=== PATIENT | female | born 1970 | race Caucasian/White ===

== ENCOUNTER → 2017-02-05 | Outpatient (CLI) | payer BC ==
[~2017-02-05] MED LIST: BECL1AER5 NAE; BENZ100C7 PO; CETI10TA84 PO; CITA20TA9 PO; DIPH25CA65 PO; HYDR5SYP11 PO; METH4PAK PO; VBRT100 PO; VNTHFA/IN INH
== END | disposition home or self-care (01) ==
LOC: C.PAPS 10:05
PROVIDERS: ATTEND Obstetrics & Gynecology
DX: Z01.419 Encounter for gynecological examination (general) (routine) without abnormal findings (principal)

== ENCOUNTER → 2017-02-20 | Outpatient (CLI) | payer BC ==
--- NOTE | 2017-02-20 14:07 | MAMMOGRAPHY REPORT ---
UNILATERAL LEFT DIGITAL DIAGNOSTIC MAMMOGRAM TOMOSYNTHESIS WITH CAD AND TARGETED LEFT ULTRASOUND: CLINICAL HISTORY: The patient reports that her physician felt a possible lump in the left 12:[address] during a routine clinical exam. TECHNIQUE: Breast tomosynthesis in addition to standard 2D mammography was performed. Current study was also evaluated with a Computer Aided Detection (CAD) system. Left CC and MLO 2-D and tomosynth esis images were obtained. COMPARISON: Comparison is made to exams dated: 08/01/2016 mammogram, 07/25/2015 mammogram, 3 mammogram - [facility], 01/24/2011 mammogram, and 08/01/2009 mammogram. BREAST COMPOSITION: The tissue of the left breast is heterogeneously dense, which may obscure small masses. FINDINGS: There has been no significant interval change mammographically compared to prior exams. There is an oval partially circumscribed and partially obscured 7 mm mass seen in the left breast on the cc view middle depth along the posterior nipple line, not clearly evident on the MLO view but t hought to project at approximately 12:00. The mass is best seen on the tomosynthesis images. The m ass is stable compared to the 2015 exam and is likely also stable compared to the 2014 exam. No paxton picious masses, calcifications, or areas of architectural distortion are noted in the left breast ma mmographically. Targeted ultrasound was performed of the area of the palpable lump pointed out by the patient, in th e left breast periareolar region approximately 2-3 cm from the nipple. At the site of the palpable lump there is an oval circumscribed anechoic mass with a thin internal septation, measuring 6 x 5 x 6 mm. This corresponds with the stable mammographic mass and is consistent with a benign cyst. No suspicious solid masses were evident. IMPRESSION: ACR BI-RADS CATEGORY 2: BENIGN, TARGETED ULTRASOUND ACR BI-RADS CATEGORY 2: BENIGN Benign 6 mm cyst seen within the left breast at 12:00 at the site of the palpable lump pointed out b y the patient. There is no mammographic or targeted sonographic evidence of malignancy. Recommend clinical follow-up for the palpable left breast lump, and recommend routine bilateral screening mamm ograms which are due July 2017. The patient has been verbally notified of the results. Approximately 10% of breast cancers are not detected with mammography. A negative mammographic repor t should not delay biopsy if a clinically suggestive mass is present. Akila Nobles M.D. ah/:02/20/2017 08:35:32 Dial Screw Assembler: Dalila MCNULTY(Vinay)(Aliyah), [facility] letter sent: Normal 1/2 BI-RADS Code: ACR BI-RADS Category 2: Benign Ultrasound BI-RADS: ACR BI-RADS Category 2: Benign
== END | disposition home or self-care (01) ==
LOC: C.MAMM 08:08
PROVIDERS: ATTEND Obstetrics & Gynecology
DX: N63 Unspecified lump in breast (principal)

== ENCOUNTER → 2017-04-09 | Outpatient (CLI) | payer BC ==
[~2017-04-09] MED LIST changes: -BENZ100C7 PO; -HYDR5SYP11 PO; -METH4PAK PO; -VBRT100 PO; -VNTHFA/IN INH
[2017-04-09 09:43] LABS: PREG INTERNAL NEGATIVE QC NEG CLEAR BACKGROUND; PREG INTERNAL POSITIVE QC POS CONTROL LINE
== END | disposition home or self-care (01) ==
LOC: C.LAB 07:47
PROVIDERS: ATTEND Physician Assistant
DX: Z30.9 Encounter for contraceptive management, unspecified (principal)

== ENCOUNTER → 2017-05-12 | Day surgery (SDC) | payer BC ==
[2017-04-15 14:37] VITALS: Ht 162.6 cm; Wt 70.5 kg
--- NOTE | 2017-05-06 18:14 | HISTORY & PHYSICAL EXAMINATION ---
DATE OF ADMISSION: 05/12/2017 CHIEF COMPLAINT: Malpositioned IUD. HISTORY OF PRESENT ILLNESS: The patient is a 46-year-old white female, 0, who has had a Mirena IUD in place since 2009. An attempt was made to remove the IUD in the office and this could not be accomplished. Ultrasound shows the arms of the IUD appeared to be imbedded in the uterine wall. The patient had a Pap smear done last January of 2017 and this was negative. Ultrasound also showed evidence of a small subserosal fibroid. The patient would like a new Mirena IUD placed after the present one is removed. Patient does have history of prior hysteroscopic myomectomy. PAST MEDICAL HISTORY: ALLERGIES: ERYTHROMYCIN ANTIBIOTICS. MEDICATIONS: The patient takes citalopram 20 mg daily. She uses 2 Q nasl children's 40-mcg aerosol solution 1 puff each nostril at night. In addition, she also takes Benadryl Allergy 25 mg as needed. PAST SURGICAL HISTORY: She has had tooth extractions in the past. She has also had a myoma removed hysteroscopically. In addition, she has had ablation of cardiac electrical conduction pathway because of arrhythmia. ILLNESSES: She has a history of depression. A history of supraventricular tachycardia. This is in addition to her history of fibroids. FAMILY HISTORY: Her mother has hypertension and had an ovarian cyst. Her sister had club foot and endometriosis. Her maternal grandmother had breast cancer. Her maternal aunt had diabetes. A maternal uncle had diabetes. SOCIAL HISTORY: The patient is single. She denies smoking cigarettes. She drinks alcohol from 0-2 drinks per week. PHYSICAL EXAMINATION: VITAL SIGNS: Height 5 feet 4 inches, weight 158 pounds, and blood pressure 112/70. HEENT: Grossly within normal limits. NECK: Supple without masses. CHEST: Her lungs are clear without wheezing. HEART: Regular rate and rhythm. No murmurs, gallops or rubs. BREASTS: There was a small left breast mass on exam, 02/05/2017. ABDOMEN: Soft and nontender with no masses. PELVIC: External genitalia normal. Vagina pink and stimulated. Cervix pink and closed with no lesions visible. IUD string is seen. EXT: No cyanosis, clubbing or edema. IMPRESSION: Embedded IUD. The patient desires removal of present IUD and insertion of new IUD. PLAN: The patient is for hysteroscopy, dilation of the cervix and curettage with possible removal of polyp/lesion and removal of IUD with possible insertion of new IUD. The patient desires new Mirena IUD. The patient is aware of the risks of infection, bleeding, perforation of the uterus, which may require additional surgery or treatment as well as the risk of failure of the procedure and retained pieces of IUD, which also could require additional surgery or treatment. She is aware of the option of doing nothing. The patient wishes to proceed with the above surgery. MTDD
[~2017-05-12] VITALS: Ht 162.6 cm; Wt 70.5 kg
[~2017-05-12] MED LIST changes: +ATROPINE SULFATE 0.1 MG/ML 5ML SYR IV PRN; -CETI10TA84 PO; +DEXAMETHASONE SOD INJ 4 MG/ML VIAL ONE; +EpHEDrine SULFATE INJ 50 MG/ML AMP IV PRN; +FENTANYL CITRATE INJ 50 MCG/1 ML 2 ML VIAL IV PRN; +FENTANYL CITRATE INJ 50 MCG/1 ML 2 ML VIAL ONE; +HYDROmorphone INJ 1 MG/ML SYR IV PRN; +IBUPROFEN 200 MG TAB ONE; +IBUPROFEN 600 MG TAB PO PRN; +KETOROLAC TROMETHAMINE 30 MG/ML VIAL ONE; +LACTATED RINGER'S 1000ML 1,000 ML IV SCH; +LIDOCAINE HCL 2% 2 ML VIAL (20MG/ML) ONE; +MIDAZOLAM HCL 1 MG/ML 2ML VIAL ONE; +ONDANSETRON INJ 2 MG/ML 2 ML VIAL IV PRN; +ONDANSETRON INJ 2 MG/ML 2 ML VIAL ONE; +PROMETHAZINE HCL INJ 12.5 MG in SODIUM CHLORIDE 0.9% 50ML 50 ML IV PRN; +PROPOFOL IV EMULSION 10 MG/ML 20 ML VIAL IV ONE; +SODIUM CHLORIDE 0.9% 1000ML 1,000 ML IV SCH
--- NOTE | 2017-05-12 08:30 | History & Physical Bridge - SC ---
H&P Re-Evaluation Bridge Note: I have examined the patient, reviewed the History & Physical and in the interval since the performance of the History & Physical I have noted the following changes of clinical significance: No changes noted
--- NOTE | 2017-05-12 09:16 | [facility] Post Operative Brief Note ---
Immediate Operative Summary Operative Date May 12, 2017. Pre-Operative Diagnosis Embedded Intrauterine Device (IUD) Post-Operative Diagnosis Same Procedure(s) Performed Dilatation And Curettage, Hysteroscopy, Intrauterine Device Removal Surgeon Dr. Mello Sommelier Surgeon(s) None Estimated Blood Loss 25 mL Findings See dictated note. Specimens A. Endometrial Curettings Complication(s) None Disposition Recovery Room / PACU
--- NOTE | 2017-05-12 09:27 | Discharge Instructions-SurgCtr ---
Discharge Instructions Date of Service May 12, 2017. Visit Reason for Visit: Unsuccessful Iud Removal Discharge Discharge Diagnosis / Problem: S/P Hysteroscopy, D&C, removal of IUD Discharge Goals Goal(s): Therapeutic intervention Activity Recommendations Activity Limitations: per Instructions/Follow-up section Anesthesia . Post Anesthesia Instructions: If you have had General Anesthesia or IV Sedation: * Do not drive today. * Resume driving when surgeon permits. * Do not make important decisions or sign legal documents today. * Call surgeon for: 1. Temperature elevations greater than 101 degrees F. 2. Uncontrollable pain. 3. Excessive bleeding. 4. Persistent nausea and vomiting. 5. Medication intolerance (nausea, vomiting or rash). * For nausea and vomiting use only clear liquids such as: tea, soda, bouillon until nausea subsides, then gradually increase diet as tolerated. * If you have any concerns or questions, call your surgeon's office. If physician is unavailable and it is an emergency, call 911 or go to the nearest emergency room. . Instructions / Follow-Up Instructions / Follow-Up ACTIVITY RECOMMENDATIONS: * Avoid tampons, douching, hot tubs, pools, and intercourse until bleeding has stopped. * May shower as usual. * No strenuous activity for 24-48 hours. After 24-48 hours, you may do anything you feel like doing (driving and sports are okay). SPECIAL CARE INSTRUCTIONS: Special Diet: * Mild nausea may occur in the immediate post-operative period. * Take clear liquids such as tea, cola or bouillon until all nausea has subsided; you may then resume your normal diet. Special Care: * Light bleeding and vaginal spotting can last from a few days to 3-4 weeks. Call your doctor if bleeding becomes heavier than the heaviest part of your period. Call if you develop foul smelling discharge or severe cramping. * Check your temperature twice a day for one week. If it goes above 100.4 degrees Fahrenheit (38.0 Celsius), notify your doctor. * Call your doctor's office for an appointment 3-4 weeks after your surgery. [phone] Mello FOLLOW-UP VISIT: Call your doctor's office for an appointment for 3-4 weeks after your surgery. Diet Recommendations Home Diet: resume previous diet Procedures Procedures Performed: Dilatation And Curettage, Hysteroscopy, Intrauterine Device Removal Pending Studies Studies pending at discharge: yes List of pending studies: Pathology report on endometrial tissue removed. Please call office and talk to surgical nurse in one week. [phone] Medical Emergencies . Who to Call and When: Medical Emergencies: If at any time you feel your situation is an emergency, please call 911 immediately. . Non-Emergent Contact Non-Emergency issues call your: Health Assistant Call Non-Emergent contact if: temperature is above 100.5, your pain is worsening . . "Provider Documentation" section prepared by Jasmyn Mello. .
--- NOTE | 2017-05-12 10:09 | OPERATIVE REPORT ---
DATE OF OPERATION: 05/12/2017 PREOPERATIVE DIAGNOSIS: Embedded intrauterine device. POSTOPERATIVE DIAGNOSIS: Same. PROCEDURE PERFORMED: Hysteroscopy, removal of IUD, and dilation and curettage. SURGEON: Jasmyn Mello MD ANESTHESIA: General. JEWELRY INTERNSHIP: Dr. Ruth. DESCRIPTION OF PROCEDURE: The patient was taken to the operating room, where general anesthesia was administered. After an adequate level was obtained, she was placed in dorsal lithotomy position. Vulva, vagina, and cervix were prepped with Betadine solution. The patient was draped. Bladder was drained with a straight catheter. Weighted speculum was placed in the posterior fornix of the vagina. The IUD strings were identified. These were grasped with a curved hemostat. An attempt made was to gently remove the IUD, but this was not possible. The cervix was then dilated enough to admit the small operating hysteroscope to be introduced. Hysteroscope was introduced and photographs taken. The IUD was indeed embedded and there appeared to be uterine synechiae holding it in place. It should be noted that the IUD had been placed immediately after hysteroscopic removal of fibroids. A grasper was used through the operating channel and it was possible to disrupt the synechiae by taking bites of the tissue with a grasper and removing the tissue from around the IUD. The body of the IUD was held in place by a thick band of tissue. After this was removed, the lower pole was freed up. Finally, the right arm of the IUD was also freed up. Finally, tissue holding the lower tip of the IUD including the strings was also freed up. It was then possible to easily remove the IUD in the usual fashion. As there was a lot of loose tissue in the endometrial cavity at that point, a gentle curettage was carried out with a smooth and then a serrated curette. This was sent to pathology as curettings. Given the disruption of the uterine rogers and the endometrial lining in the process of removal of the IUD, a new IUD was not placed. We will wait for 2-3 months before placing the new IUD to allow the uterine rogers to heal. I attest to the content of the Intraoperative Record and any orders documented therein. Any exceptions are noted below. MTDD
[2017-05-12 10:21] VITALS: TEMP 36.2
--- NOTE | 2017-05-12 10:31 | Anesthesia Progress Nt - [facility] ---
Anesthesia Post Op Note Date & Time May 12, 2017 at 10:30 Vital Signs Pain Intensity: 2 Vital Signs Past 12 Hours Date Time Temp Pulse Resp B/P (MAP) Pulse Ox O2 Delivery O2 Flow Rate FiO2 05/12/17 10:21 36.2 53 16 117/80 (92) 100 Room Air 05/12/17 10:11 36.4 119/66 05/12/17 10:10 62 19 05/12/17 10:10 68 19 100 05/12/17 10:06 122/82 05/12/17 10:05 58 8 05/12/17 10:05 57 8 100 05/12/17 10:01 119/71 05/12/17 10:00 71 10 100 05/12/17 10:00 67 10 05/12/17 09:56 120/72 05/12/17 09:55 58 7 99 05/12/17 09:55 58 7 05/12/17 09:51 110/68 05/12/17 09:50 53 5 99 05/12/17 09:50 53 5 05/12/17 09:46 109/65 05/12/17 09:45 58 5 99 05/12/17 09:45 58 5 05/12/17 09:41 102/66 05/12/17 09:40 58 7 05/12/17 09:40 58 7 99 05/12/17 09:36 107/68 05/12/17 09:35 68 7 99 05/12/17 09:35 68 7 05/12/17 09:31 110/69 05/12/17 09:30 56 12 99 05/12/17 09:30 57 12 05/12/17 09:26 112/74 05/12/17 09:25 36.2 64 16 112/74 99 Mask 6 05/12/17 09:25 66 99 05/12/17 09:25 66 05/12/17 07:09 36.7 68 18 111/75 (87) 96 Room Air Notes Mental Status: alert / awake / arousable, participated in evaluation Pt Amnestic to Procedure: Yes Nausea / Vomiting: adequately controlled Pain: adequately controlled Airway Patency, RR, SpO2: stable & adequate BP & HR: stable & adequate Hydration State: stable & adequate Anesthetic Complications: no major complications apparent Doing well. No c/o nausea. VSS
[2017-05-12 10:45] VITALS: BP 107/72; PULSE 56; O2SAT 100
== END | disposition home or self-care (01) ==
LOC: X.SURG 07:01
PROVIDERS: ATTEND Obstetrics & Gynecology
DX: T83.39XA Other mechanical complication of intrauterine contraceptive device, initial encounter (principal); Y84.8 Other medical procedures as the cause of abnormal reaction of the patient, or of later complication, without mention of misadventure at the time of the procedure; F32.9 Major depressive disorder, single episode, unspecified; Z84.2 Family history of other diseases of the genitourinary system; Z86.79 Personal history of other diseases of the circulatory system

== ENCOUNTER → 2017-08-04 | Outpatient (CLI) | payer BC ==
[~2017-08-04] MED LIST changes: -ATROPINE SULFATE 0.1 MG/ML 5ML SYR IV PRN; -DEXAMETHASONE SOD INJ 4 MG/ML VIAL ONE; -EpHEDrine SULFATE INJ 50 MG/ML AMP IV PRN; -FENTANYL CITRATE INJ 50 MCG/1 ML 2 ML VIAL IV PRN; -FENTANYL CITRATE INJ 50 MCG/1 ML 2 ML VIAL ONE; -HYDROmorphone INJ 1 MG/ML SYR IV PRN; -IBUPROFEN 200 MG TAB ONE; -IBUPROFEN 600 MG TAB PO PRN; -KETOROLAC TROMETHAMINE 30 MG/ML VIAL ONE; -LACTATED RINGER'S 1000ML 1,000 ML IV SCH; -LIDOCAINE HCL 2% 2 ML VIAL (20MG/ML) ONE; -MIDAZOLAM HCL 1 MG/ML 2ML VIAL ONE; -ONDANSETRON INJ 2 MG/ML 2 ML VIAL IV PRN; -ONDANSETRON INJ 2 MG/ML 2 ML VIAL ONE; -PROMETHAZINE HCL INJ 12.5 MG in SODIUM CHLORIDE 0.9% 50ML 50 ML IV PRN; -PROPOFOL IV EMULSION 10 MG/ML 20 ML VIAL IV ONE; -SODIUM CHLORIDE 0.9% 1000ML 1,000 ML IV SCH
--- NOTE | 2017-08-05 07:48 | MAMMOGRAPHY REPORT ---
BILATERAL DIGITAL SCREENING MAMMOGRAM TOMOSYNTHESIS WITH CAD: 08/04/2017 CLINICAL HISTORY: Routine screening. Patient has no complaints. TECHNIQUE: Breast tomosynthesis in addition to standard 2D mammography was performed. Current study was also evaluated with a Computer Aided Detection (CAD) system. COMPARISON: Comparison is made to exams dated: 02/20/2017 ultrasound, 02/20/2017 mammogram, 08/01/2016 mammogram, 07/25/2015 mammogram, 09/08/2013 mammogram - [facility], and 01/24/2011 m ammogram. BREAST COMPOSITION: The tissue of both breasts is heterogeneously dense, which may obscure small mas ses. FINDINGS: The parenchymal pattern is unchanged. No developing mass, architectural distortion or clus ter of suspicious microcalcifications is seen in either breast. IMPRESSION: ACR BI-RADS CATEGORY 2: BENIGN There is no mammographic evidence of malignancy. A 1 year screening mammogram is recommended. The pa tient will receive written notification of the results. Approximately 10% of breast cancers are not detected with mammography. A negative mammographic report should not delay biopsy if a clinically suggestive mass is present. Smita Ybarra M.D. ay/:08/04/2017 20:34:17 Brick Tosser: Opal MCNULTY(Vinay)(Aliyah), [facility] letter sent: Normal 1/2 BI-RADS Code: ACR BI-RADS Category 2: Benign
== END | disposition home or self-care (01) ==
LOC: C.MAMM 16:20
PROVIDERS: ATTEND Internal Medicine
DX: Z12.31 Encounter for screening mammogram for malignant neoplasm of breast (principal)

== ENCOUNTER → 2017-08-27 | Outpatient (CLI) | payer BC ==
[~2017-08-27] MED LIST changes: +BENZ100C7 PO; +HYDR5SYP11 PO; +METH4PAK PO; +VBRT100 PO; +VNTHFA/IN INH
--- NOTE | 2017-08-27 09:46 | DIAGNOSTIC IMAGING REPORT ---
CHEST 2 VIEWS ROUTINE CLINICAL HISTORY: 47 years-old Female presenting with R68.89 Flu-like [id number]. TECHNIQUE: PA and lateral views of the chest were obtained. COMPARISON: 01/04/2013. FINDINGS: Cardiomediastinal silhouette normal. Dense opacity in the anterior segment of the right upper lobe. No pleural effusion or pneumothorax. Osseous structures normal. Upper abdomen normal. IMPRESSION: 1. Right upper lobe pneumonia. Electronically signed by: Scooby Paulson M.D. 08/27/2017 9:44 AM Dictated Date/Time: 08/27/2017 9:44 AM
== END | disposition home or self-care (01) ==
LOC: C.RAD1850 09:21
PROVIDERS: ATTEND Internal Medicine
DX: R68.89 Other general symptoms and signs (principal); J18.9 Pneumonia, unspecified organism

== ENCOUNTER 2017-08-31 10:54 | Emergency (ER) | payer BC ==
[~2017-08-31] VITALS: Ht 162.6 cm; Wt 74.0 kg
[~2017-08-31 10:54] MED LIST changes: -BENZ100C7 PO; -HYDR5SYP11 PO; -METH4PAK PO; -VBRT100 PO; -VNTHFA/IN INH
[2017-08-31 11:01] VITALS: Ht 162.6 cm; Wt 74.0 kg
[2017-08-31] MEDS ORDERED: BENZ100C7 PO (11:29)
[2017-08-31] MEDS ORDERED: VBRT100 PO (11:29)
[2017-08-31] MEDS ORDERED: ALBUTEROL HFA 8 GM INHALER INH ONE (11:30)
[2017-08-31] MEDS ORDERED: VNTHFA/IN INH (11:31)
[2017-08-31] MEDS ORDERED: HYDR5SYP11 PO (11:31)
[2017-08-31] MEDS ORDERED: METH4PAK PO (11:31)
--- NOTE | 2017-08-31 11:32 | EMERGENCY ROOM VISIT NOTE ---
ED Visit Note First contact with patient: 11:04 CHIEF COMPLAINT: Cough x 10 days, diagnosed with pneumonia last week. HPI: Patient is an otherwise healthy 47-year-old white female who presents the emergency department for evaluation of persistent cough after being diagnosed with pneumonia last week. Patient reports that she developed cold and flulike symptoms about 10 days ago. She reports a dry, nonproductive cough, fever up to 102F orally and body and muscle aches. She treated her symptoms conservatively until last Friday, 08/27 when she was seen by her primary care provider. She had an influenza swab was performed which was negative, and a chest x-ray which noted a right upper lobe pneumonia. She is placed on doxycycline which she has been taking twice a day since last Friday. She was also given Tessalon for cough which has not been helping. She has also used waqa-[id number]-evhnrrr medications into including Tylenol Cold and flu. She states that the fever has been trending down, temperature yesterday was 99.8F orally. She states that her chest feels "less rattley," but she is still bothered by a fairly persistent cough. She notes the cough is productive in the morning, but becomes dry, harsh and "spasmodic" as the day goes on. She denies any difficulty breathing, shortness of breath or chest pain. She does not smoke. She does not have any prior history of asthma. REVIEW OF SYSTEMS: Review of systems as per HPI. All other systems reviewed were negative. 10 systems reviewed. PMH: Electronic medical records are reviewed and summarized as above/below. See Problem List. SOCIAL HISTORY: Patient lives at home with family. Employed. PHYSICAL EXAM: Vital Signs: Reviewed Nurse's notes. MENTAL STATUS: Patient is a pleasant, well-appearing 47-year-old white female who is awake and alert and in no acute distress. She is afebrile. Oxygen saturation 96% on room air. No conversational dyspnea. HEAD: Atraumatic, without temporal or scalp tenderness. EYES: PERRL, EOMI, no discharge or injection. EARS: Tympanic membranes intact, not inflamed, have normal contour. External canals clear. NOSE: Nares patent, turbinates moist without rhinorrhea. MOUTH: Mucous membranes moist, no lesions, tongue and gums appear normal. THROAT: No pharyngeal injection, exudates, or tonsillar hypertrophy. Airway is patent. NECK: Supple, nontender, no lymphadenopathy. HEART: Regular rate and rhythm without murmurs, ectopy, gallops, or rubs. LUNGS: Clear to auscultation and breath sounds equal, no wheezes, rales, or rhonchi. SKIN: Normal. NEUROLOGICAL: Sensory and motor functions grossly intact. Normal gait. EMERGENCY DEPARTMENT COURSE: The patient was seen and examined as above. Her chest x-ray from last week was reviewed. Further supportive care was discussed with the patient. She appears to be responding well to the doxycycline, certainly residual cough given the diagnosis of pneumonia is not unreasonable however. She was given an albuterol inhaler with a spacer, and instructed on its use. She was given prednisone 60 mg orally. She was also given a prescription for Hycodan that she can use for cough. She was advised to follow- up with her primary care provider next week if her symptoms are not improving. Differential diagnoses entertained included bronchitis, pneumonia, bronchospasm , allergic rhinitis, among others. Medication reconciliation: I attest that I have personally reviewed the patient' s current medication list. Blood pressure screening : Patient was found to have normal blood pressure on screening and does not require follow-up. Problem List Medical Problems: (1) Anxiety State Nos Status: Chronic (2) Depressive Disorder Nec Status: Chronic (3) Environmental and seasonal allergies Status: Chronic (4) Lower back injury Status: Resolved Current/Historical Medications Scheduled Albuterol Hfa (Ventolin Hfa), 2-4 PUFFS INH Q6H Benzonatate (Benzonatate), 100 MG PO UD Citalopram Hydrobromide (Celexa), 20 MG PO QPM Doxycycline Hyclate (Doxycycline Hyclate), 100 MG PO BID Methylprednisolone (Medrol Dosepak), 0 PO DAILY Scheduled PRN Beclomethasone Dipropionate (N (Qnasl), 2 SPRY EULA DAILY PRN for PRN Diphenhydramine Hcl (Benadryl Allergy), 1 CAP PO DIRECTED PRN for ALLERGY RELIEF Hydrocodone W/ Homatropine (Hycodan 5/1.5MG 5 Ml), 10 ML PO Q4H PRN for Cough Allergies Coded Allergies: Erythromycin (Verified Allergy, Mild, RASH, 08/31/17) Vital Signs Date Time Temp Pulse Resp B/P (MAP) Pulse Ox O2 Delivery O2 Flow Rate FiO2 08/31/17 11:43 36.7 74 16 98/65 98 08/31/17 11:17 89 08/31/17 11:12 79 16 125/71 98 Room Air 08/31/17 11:01 36.9 81 20 123/78 96 Room Air Medications Administered Medications (Trade) Dose Ordered Sig/[place] Route Start Time Stop Time Status Last Admin Dose Admin Albuterol (Ventolin Hfa Inhaler) 2 puffs NOW ONCE INH 08/31/17 11:30 08/31/17 11:31 DC 08/31/17 11:42 2 PUFFS Prednisone (PredniSONE TAB) 60 mg NOW STAT PO 08/31/17 11:20 08/31/17 11:22 DC 08/31/17 11:42 60 MG Departure Information Impression Primary Impression: Pneumonia Prescriptions Albuterol Hfa (VENTOLIN HFA) 200 Puffs/13364 Mcg Aers 2-4 PUFFS INH Q6H, #1 INHALER Prov: Vivian Castañeda PA 08/31/17 Methylprednisolone (MEDROL DOSEPAK) 4 Mg Carlos 0 PO DAILY, #1 PKT Once daily as directed. Prov: Vivian Castañeda PA 08/31/17 Hydrocodone W/ Homatropine (HYCODAN 5/1.5MG 5 ML) 1 Syp Syp 10 ML PO Q4H Y for Cough, #200 ML For Initial Treatment Prov: Vivian Castañeda PA 08/31/17 Referrals RV. Pedersen MD (PCP) Patient Instructions My [facility] Additional Instructions Finished doxycycline as prescribed. Albuterol Inhaler: Take 2 puffs every 4 hours (while awake) for the next 5-7 days, then as needed for cough, wheezing or shortness of breath. Medrol Dosepak: Once daily until the prescription is finished. It is best to take this earlier in the day as some patients note occasional difficulty falling asleep when taken in the late evening. Ibuprofen(Motrin, Advil) may be used for fever or pain. Use 600mg every six hours as needed. Take with food. Avoid using more than 2400mg in a 24 hour period. Do not use 2400mg per day for more than three consecutive days without physician direction. Prolonged inappropriate use can lead to stomach upset or ulcers. This is available over the counter and typically comes in 200mg tablets. (AND/OR) Acetaminophen(Tylenol) may be used for fever or pain. Use 1000mg every eight hours as needed. Avoid using more than 3000mg in a 24 hour period. This is available over the counter. Hycodan cough syrup: use 5-10 mL's every six hours only as needed for severe cough. It is best for use at night since it will cause sedation. This is a narcotic medication. Avoid alcohol, operating machinery or dangerous equipment , working on ladders or roofs, DRIVING, important decision making, or situations where being under the influence may be dangerous. It is recommended to use an luod-ozz-caufdup stool softener such as Colace, 100mg twice daily while taking this medication to avoid constipation. Read all the package inserts or medication information paperwork provided. If you have any questions or concerns call your primary provider, pharmacist or the ER for assistance. Controlling your fever with Tylenol and Ibuprofen as above will make you feel better. Rest and drink plenty of fluids. Avoid strenuous activity until your symptoms resolve and your breathing returns to normal. Continue current medications. Return to the ER for chest pain, difficulty breathing, persistent fevers, vomiting, worsening of your condition, or as needed. Follow up with your primary care physician next week if your symptoms are not improving.
[2017-08-31 11:43] VITALS: BP 98/65; PULSE 74; TEMP 36.7; O2SAT 98
== END 2017-08-31 11:45 | disposition home or self-care (01) ==
LOC: C.EDB 10:55 → C.EDC 11:45
DX: J18.9 Pneumonia, unspecified organism (principal); F32.9 Major depressive disorder, single episode, unspecified

== ENCOUNTER → 2017-09-08 | Outpatient (CLI) | payer BC ==
[~2017-09-08] MED LIST changes: +BENZ100C7 PO; +HYDR5SYP11 PO; +METH4PAK PO; +VBRT100 PO; +VNTHFA/IN INH
--- NOTE | 2017-09-08 11:58 | DIAGNOSTIC IMAGING REPORT ---
CHEST 2 VIEWS ROUTINE CLINICAL HISTORY: 47 years-old Female presenting with J18.9 Community acquired pneumonia. TECHNIQUE: PA and lateral views of the chest were obtained. COMPARISON: 08/27/2017. FINDINGS: Cardiomediastinal silhouette normal. Interval resolution of the right upper lobe opacity. No new focal infiltrate. No pleural effusion or pneumothorax. Osseous structures normal. Upper abdomen normal. IMPRESSION: 1. Complete radiographic resolution of right upper lobe pneumonia. Electronically signed by: Scooby Paulson M.D. 09/08/2017 11:57 AM Dictated Date/Time: 09/08/2017 11:56 AM
== END | disposition home or self-care (01) ==
LOC: C.RAD1850 11:40
PROVIDERS: ATTEND Physician Assistant
DX: J18.9 Pneumonia, unspecified organism (principal)

== ENCOUNTER → 2017-09-13 | Outpatient (CLI) | payer BC ==
[~2017-09-13] MED LIST changes: -HYDR5SYP11 PO; -METH4PAK PO
--- NOTE | 2017-09-13 12:40 | DIAGNOSTIC IMAGING REPORT ---
CHEST 2 VIEWS ROUTINE HISTORY: Follow-up PNEUMONIA COMPARISON: Chest 09/08/2017. FINDINGS: The lungs are clear. Cardiac silhouette is normal in size. No pleural effusions. No pneumothorax. IMPRESSION: No acute process. Electronically signed by: Celestino Mejia M.D. 09/13/2017 12:39 PM Dictated Date/Time: 09/13/2017 12:37 PM
== END | disposition home or self-care (01) ==
LOC: C.RADBC 12:17
PROVIDERS: ATTEND Internal Medicine
DX: Z87.01 Personal history of pneumonia (recurrent) (principal)

== ENCOUNTER → 2017-12-16 | Outpatient (CLI) | payer BC ==
[~2017-12-16] VITALS: Ht 162.6 cm; Wt 75.6 kg
[2017-12-16 15:53] VITALS: BP 120/71; PULSE 76; Ht 162.6 cm; Wt 75.6 kg
== END | disposition home or self-care (01) ==
LOC: C.NEUR 14:10
PROVIDERS: ATTEND Physician Assistant Medical
DX: R06.83 Snoring (principal); G47.8 Other sleep disorders; R53.83 Other fatigue; J30.9 Allergic rhinitis, unspecified

== ENCOUNTER → 2018-01-06 | Outpatient (CLI) | payer BC ==
--- NOTE | 2018-01-07 07:36 | PAP/PSG TECHNICIAN REPORT ---
[facility] Store Administrative Assistant Polysomnogram Report Study name: None Report date: 01/07/2018 Study date: 01/06/2018 Referring Physician: RV. PÉREZ MD Name: ANIRUDH GOETZ Interpreting Physician: Geoff Greenberg M.D. Date of : 1970 Store Administrative Assistant: Stephy Goodman, PSGT. Sex: Female Age: 47 StudyType: PSG Weight: 166 lbs Height: 47 years, Height 5' 4" Neck Circum:13.5 BMI: 28.49 Medications: Breo, Citalopram 20 mg, Melatonin 5 mg, Mucinex 600 mg, Pro-Air. Patient History 47-year-old female, presents to the sleep lab for a diagnostic sleep study. Patient complains of snoring, fatigue, and a 17 lb. weight gain in the last 1-2 years.ESS= 4, Neck = 13.5 inches. Parameters Monitored NPSG: E1-M2, E2-M1, Fp1-M2, Fp2-M1, F3-M2, F4-M2, F4-M1, C3-M2, C4-M2, C4-M1, O1-M2, O2-M2, O2-M1, T3-M2, T4-M1, P3-M2, P4-M1, CHIN1, CHIN2, HR, EKG, Legs, PFLOW, SNOR, FLOW, CFLOW, Tidal Volume, THOR, ABDO, SpO2, PLTH, CPRESS, ETCO2 Wave, ETCO2, pH Sleep Architecture Sleep Stages Time at Lights Off 9:59:23 PM STAGES Time (min.) TST (%) Time at Lights On 5:12:23 AM Wake 87.0 -- Total Recording Time (TRT) 434.00 min. N1 18.0 5 Total Sleep Period (TSP) 382.0 min. N2 236.0 68 Total Sleep Time (TST) 346.0min. N3 37.5 11 Awake Time 87.0 min. REM 54.5 16 Wake after Sleep Onset 36.0 min. Sleep Efficiency (SE) 80 % Sleep Onset Latency (MEGA) 51.0 min. Number of Stage 1 Shifts None Awakenings 8 Stage Changes 41 Number of REM periods 4 REM 54.5 16 REM Latency 185.5 min. NREM 291.5 84 Body Position Analysis Supine Right Left Side Prone Vertical Total Sleep Time (min.) 0.0 0.0 74.5 74.50 301.8 16.4 Total Sleep Time (%) 0% 0% 22% 22 78% N/A% Total Sleep Time REM (min.) 0.0 0.0 0.0 None 54.5 0.0 Total Sleep Time NREM (min.) 0.0 0.0 74.5 None 217.0 0.0 Intermittent Wake (min.) 0.0 0.0 40.3 None 30.3 16.4 Total Sleep Period (%) 0% None None None None None Arousals Myoclonus (PLM) * Events Count Index Events Count Index Spontaneous 30 5 Events Awake (PLMW) 1 0.7 Respiratory 0 0.0 Events Asleep w/ Arousal (PLMA) 21 3.6 PLM 21 4 Events Asleep w/o Arousal (PLMS) 88 15.3 Snoring 21 4 Total Asleep 109 18.9 Total 72 12 Total 110 15 Respiratory Analysis * CA OA MA CH H RERA Total Count 0 1 0 0 1 0 2 Index 0.0 0.2 0.0 0 0.2 0 0.3 Mean Duration 0.0 14.9 0.0 0.00 26.8 0.0 20.8 Longest Duration 0.0 14.9 0.0 0.00 0.0 0.0 26.8 Respiratory Event Summary Total Supine ~Supine Right Left Prone REM NREM Apneas Count 1 N/A 1 N/A 0 1 0 1 Index 0.2 N/A 0 N/A 0.0 0 0 0 Hypopneas (4% Desat) Count 1 N/A 1 N/A 0 1 1 0 Index 0.2 N/A 0 N/A 0.0 0.2 1.1 0.0 Apneas & All Hypopneas Count 2 N/A 2 N/A 0 2 1 1 Index 0.3 N/A 0 N/A 0 0 1.1 0.2 Respiratory Events (Hedis Review Nurse+All Hyp+RERA) Count 2 N/A 2 N/A 0 2 1 1 Index 0.3 N/A 0 N/A 0.0 0.4 1.1 0.2 Respiratory Related Arousal Count 0 N/A 0 N/A 0 0 0 0 Index 0.0 N/A 0 N/A 0 0 0 0 Snoring Analysis Supine Right Left Prone REM NREM Total Snore duration 53.0 min Snores count N/A N/A 727 1,428 169 1,986 2,155 Snore mean duration 1.5 Sec Snores index N/A N/A 586 316 186.1 408.8 373.7 TST with snoring (%) 15.3% Desaturation Event Summary: Minimum %SpO2 Event Count Mean/Min/Max Duration(sec.) Desaturation Index % Time In Bed > 90 2 16.8 / 12.5 / 21.0 0.3 99.9 86 - 90 0 N/A 0.0 0.0 81 - 85 0 N/A 0.0 0.0 76 - 80 0 N/A 0.0 0.0 71 - 75 0 N/A 0.0 0.0 66 - 70 0 N/A 0.0 0.0 61 - 65 0 N/A 0.0 0.0 56 - 60 0 N/A 0.0 0.0 51 - 55 0 N/A 0.0 0.0 < 50 0 N/A 0.0 0.0 Total REM NREM Awake <50% 0.0 min. 0.0 min. 0.0 min. 0.0 min. 51 - 60% 0.0 min. 0.0 min. 0.0 min. 0.0 min. 61 - 70% 0.1 min. 0.0 min. 0.0 min. 0.1 min. 71 - 80% 0.0 min. 0.0 min. 0.0 min. 0.0 min. 81 - 90% 0.2 min. 0.0 min. 0.0 min. 0.2 min. 91 - 100% 432.1 min. 54.5 min. 291.4 min. 86.1 min. Average 94 94 94 95 Minimum SpO2 68 91 91 68 Desaturation Event Index 0.3 1.1 0.2 0.0 # Desat. Events below 89% N/A N/A N/A N/A Time(%) with Saturation below 89% 0.0 0.0 0.0 0.0 Time(min.) with Saturation below 89% 0.1 0.0 0.0 0.1 Time (mins) REM (mins) NREM (mins) % of TST SpO2 Below 90% N/A N/A NN/A 0.0 SpO2 Below 88% 0 0 0 0 Heart Rate Analysis Min (bpm) Max (bpm) Average (bpm) Awake 50 127 59 NREM 50 77 55 REM 53 81 61 Overall 50 81 56 Supplemental O2 Values Minimum O2 level: None Value Start Time End Time Store Administrative Assistant Comments PSG Study MS. Goetz slept in the right, and prone positions. No cardiac arrhythmia or PLMs noted. No bruxism noted. Snoring was noted and scored as a 3 on a scale of 0 through 5. (0=no snoring, 5=snoring loud enough to be heard through a closed door or down the padilla way) awoke to use the restroom zero times during the night. Ms. Goetz stated, I did not sleep as well as I do when I am in my own bed. The final report will be interpreted and signed by a sleep physician. The completed physician report will then be placed in the patient medical record. Therapy (cm H2O) 0 TIB (min.) 433.0 TST (min.) 346.0 Sleep Onset (min.) 51.0 REM Onset From Sleep (min.) 185.5 Sleep Efficiency % 80 Wakefulness (%) 20 Wakefulness (min.) 87.0 NREM 1 (%) 5 NREM 1 (min.) 18.0 NREM 2 (%) 68 NREM 2 (min.) 236.0 NREM 3 (%) 11 NREM 3 (min.) 37.5 REM (%) 16 REM (min.) 54.5 # Arousals 72 Arousal Index 12 # Snore 2,155 Snore Index 373.7 AHI 0.3 AHI Supine N/A AHI Non-Supine 0 NREM AHI 0.2 REM AHI 1.1 RDI 0.3 # Obstructive Apnea 1 # Central Apnea 0 # Mixed Apnea 0 # Hypopneas 1 RERAs 0 Total Respiratory Events 4 Time Below SpO2 89% (min.) 0.0 Mean NREM SpO2 (%) 94 Mean REM SpO2 (%) 94 Mean Sleep SpO2 (%) 94 Min NREM SpO2 (%) 91 Min REM SpO2 (%) 91 Position Supine (min.) 0.0 Position Non-supine (min.) 346.0 LM Index Sleep 18.9 LM Index NREM 16.1 LM Index REM 34.1 Mean Heart Rate (bpm) 56 Min Heart Rate (bpm) 50
--- NOTE | 2018-01-08 17:29 | POLYSOMNOGRAPH REPORT ---
CLINICAL DATA: A 47-year-old female with a BMI of 29.5, referred by Dr. Decker with snoring, fatigue, and a 17 pound weight gain in the last 1-2 years. SLEEP ARCHITECTURE: Total sleep period was 382 minutes. Total sleep time was 346 minutes divided between 291.5 minutes of non-REM sleep and 54.5 minutes of REM sleep. Sleep onset latency was delayed at 51 minutes. REM latency was delayed at 185.5 minutes. Sleep efficiency was 80%. Wake after sleep onset was 36 minutes. Sleep consisted of stage N1 5%, stage N2 68%, stage N3 11%, and REM 16%. AROUSAL DATA: 72 arousals were recorded for an index of 12 per hour. 30 were spontaneous. 21 were due to snoring events. PLM DATA: Very mildly elevated limb movements during sleep were noted. There were 109 limb movements during sleep noted for an index of 18.9 per hour with arousal index of 3.6 per hour. RESPIRATORY DATA: There was no evidence of clinically significant sleep apnea/hypopnea seen. The AHI was 0.3. There was 1 obstructive apneic episode, 15 seconds in duration. There was 1 hypopneic episode, 26.8 seconds in duration. OXIMETRY DATA: No hypoxemia was seen. Oxygen nikita was 91%. Mean saturation was 94%. EKG: Heart rates ranged from 50 to 81 beats per minute. No arrhythmias were noted. KENO MANAGER'S COMMENTS: The patient slept in the right and prone position. Snoring was moderate, rated 3 on a scale of 1-5. IMPRESSION: No evidence of clinically significant sleep apnea/hypopnea, nocturnal hypoxemia, or excessively abnormal limb movements during sleep to explain this patient's symptoms. RECOMMENDATIONS: The patient should continue to practice good sleep hygiene. [facility]
== END | disposition home or self-care (01) ==
LOC: C.NEUR 21:00
PROVIDERS: ATTEND Physician Assistant Medical
DX: R53.83 Other fatigue (principal); G47.9 Sleep disorder, unspecified; R06.83 Snoring

== ENCOUNTER → 2018-01-08 | Outpatient (CLI) | payer BC | END | disposition home or self-care (01) | LOC: C.PATHSPEC 18:19 | PROVIDERS: ATTEND Podiatrist Foot & Ankle Surgery | DX: B07.9 Viral wart, unspecified (principal) ==

== ENCOUNTER → 2018-05-07 | Day surgery (SDC) | payer BC ==
[2018-05-04 10:24] VITALS: Ht 162.6 cm; Wt 77.3 kg
--- NOTE | 2018-05-06 15:14 | History and Physical: Surg Cnt ---
History & Physical Date May 06, 2018. Chief Complaint sinus infections History of Present Illness The patient is a 47 year old female with complaints of chronic sinusitis, deviated septum Past Medical/Surgical History Medical Problems: (1) Anxiety State Nos (2) Depressive Disorder Nec (3) Environmental and seasonal allergies (4) Lower back injury Additional History Hepatic Disease: No Endocrine Disorder: No Kidney Disease: No Hypertension: No Heart Disease: No Bleeding Tendencies: No Infectious Diseases: No Allergies Coded Allergies: Erythromycin (Verified Allergy, Mild, RASH, 05/04/18) Cat Dander (Verified Allergy, Unknown, MOLDS AND CAT-ITCHING RUNNY EYES, ) Nickel (Verified Allergy, Unknown, RASH ON SKIN, 05/04/18) Home Medications Scheduled Beclomethasone Dipropionate (N (Qnasl), 2 SPRY EULA BID Cetirizine Hcl (Zyrtec), 10 MG PO PRN Fish Oil (Dodge-3), 1 CAP PO QPM Ibuprofen (Advil), 400 MG PO PRN Scheduled PRN Diphenhydramine Hcl (Benadryl Allergy), 1 CAP PO DIRECTED PRN for ALLERGY RELIEF Melatonin ( Melatonin), 1 TAB PO HS PRN for PRN Physical Examination Skin: warm/dry, no rash Eyes: normal inspection, EOMI, sclerae normal ENT: normal ENT inspection, pharynx normal Head: normocephalic, atraumatic Neck: supple, no adenopathy, trachea midline Respiratory/Chest: lungs clear, normal breath sounds, no respiratory distress Cardiovascular: regular rate, rhythm, no edema, no murmur Abdomen / GI: normal bowel sounds, non tender Back: normal inspection Extremities: normal inspection, normal range of motion Neurologic/Psych: no motor/sensory deficits, alert, normal reflexes, oriented x 3 Diagnosis chronic sinusitis, deviated septum Plan of Treatment septoplasty, endoscopic sinus surgery
[~2018-05-07] VITALS: Ht 162.6 cm; Wt 77.3 kg
[~2018-05-07] MED LIST changes: +ATROPINE SULFATE 0.1 MG/ML 5ML SYR IV PRN; +BACITRACIN OINT 15 GM TUBE ONE; -BENZ100C7 PO; +CEFAZOLIN 1000MG IV PUSH 7.5 ML IV SCH; +CETI10TA10 PO; -CITA20TA9 PO; +DEXAMETHASONE SOD INJ 4 MG/ML VIAL ONE; +EpHEDrine SULFATE 50MG/5ML SYR ONE; +EpHEDrine SULFATE INJ 50 MG/ML AMP IV PRN; +EpINEphrine INJ 1MG/ML AMP 1 MG/ML AMP ONE; +FENTANYL CITRATE INJ 50 MCG/1 ML 2 ML VIAL IV PRN; +FENTANYL CITRATE INJ 50 MCG/1 ML 2 ML VIAL ONE; +GELATIN SPONGE 12-7MM ONE; +IBUP-1050 PO; +LACTATED RINGER'S 1000ML 1,000 ML IV SCH; +LIDO 2%/EPINEPHRINE 1:100000 20 ML VIAL ONE; +LIDOCAINE 4% MPF SOAK 5 ML = 1 DOSE ONE; +LIDOCAINE HCL 2% 2 ML VIAL (20MG/ML) ONE; +MELA1TAB5 PO; +METOCLOPRAMIDE HCL INJ 5 MG/ML 2 ML VIAL ONE; +MIDAZOLAM HCL 1 MG/ML 2ML VIAL ONE; +NURSING VERBAL MED ORDER ONE; +OMEG10007 PO; +ONDANSETRON INJ 2 MG/ML 2 ML VIAL IV PRN; +ONDANSETRON INJ 2 MG/ML 2 ML VIAL ONE; +OXYC-57 PO; +OXYCODONE/ACETAMINOPHEN 5-325 TAB PO PRN; +PROPOFOL IV EMULSION 10 MG/ML 20 ML VIAL ONE; +SCOPOLAMINE 1.5 MG TDSY TD ONE; +SODIUM CHLORIDE 0.9% 1000ML 1,000 ML IV SCH; -VBRT100 PO; -VNTHFA/IN INH
--- NOTE | 2018-05-07 10:26 | Discharge Instructions-SurgCtr ---
Discharge Instructions Date of Service May 07, 2018. Visit Reason for Visit: Chronic Sinusitis, Septal Deviation Discharge Discharge Diagnosis / Problem: same Discharge Goals Goal(s): Therapeutic intervention Activity Recommendations Activity Limitations: per Instructions/Follow-up section Anesthesia . Post Anesthesia Instructions: If you have had General Anesthesia or IV Sedation: * Do not drive today. * Resume driving when surgeon permits. * Do not make important decisions or sign legal documents today. * Call surgeon for: 1. Temperature elevations greater than 101 degrees F. 2. Uncontrollable pain. 3. Excessive bleeding. 4. Persistent nausea and vomiting. 5. Medication intolerance (nausea, vomiting or rash). * For nausea and vomiting use only clear liquids such as: tea, soda, bouillon until nausea subsides, then gradually increase diet as tolerated. * If you have any concerns or questions, call your surgeon's office. If physician is unavailable and it is an emergency, call 911 or go to the nearest emergency room. . Instructions / Follow-Up Instructions / Follow-Up ACTIVITY RECOMMENDATIONS: * Being up and around is good, but no strenuous activity, heavy lifting or physical exertion for one week. * Keep your head elevated 30 degrees when lying down or sleeping. * Do not blow your nose for 48 hours, sniff back instead. * Avoid hot showers. OVER THE COUNTER MEDICATIONS: * You may use Tylenol * Avoid aspirin or aspirin containing products, e.g. as they may increase bleeding. SPECIAL CARE INSTRUCTIONS: * Expect to have bloody drainage from your nose and/or down your throat for one to three days. Change drip pad as needed. * Begin irrigating your nose with saline solution today, at least six to ten times per day and sniff back to help remove old clots or crust. * You may experience nasal and facial congestion, pain and pressure, this is normal. * Please call with any significant and/or progressive pain, redness, swelling around the eyes, visual changes, fever of 101.5 degrees F, active bleeding or any problems or concerns. * If active bleeding occurs, spray the nose three times at one minute intervals with Afrin spray and call or cell phone: . If unable to reach the doctor, go to the nearest Emergency Department. Special Diet: * Avoid extremely hot fluids. FOLLOW UP VISIT: Follow-up Visit with Dr. Rodriguez If not already scheduled, please call to schedule. Diet Recommendations Home Diet: no limitations Procedures Procedures Performed: Endoscopic Sinus Surgery to Include Left and Right Frontal, Left and Right Maxillary, Left and Right Total Ethmoidectomies and Septoplasty Pending Studies Studies pending at discharge: no Medical Emergencies . Who to Call and When: Medical Emergencies: If at any time you feel your situation is an emergency, please call 911 immediately. . Non-Emergent Contact Non-Emergency issues call your: Primary Care Provider . . "Provider Documentation" section prepared by Melvi Rodriguez. . [place] Drug Monitoring Program Search Results: no issues identified
--- NOTE | 2018-05-07 10:44 | [facility] Post Operative Brief Note ---
Immediate Operative Summary Operative Date May 07, 2018. Pre-Operative Diagnosis Chronic sinusitis and deviated septum Post-Operative Diagnosis Chronic sinusitis and deviated septum Procedure(s) Performed Endoscopic Sinus Surgery to Include Left and Right Frontal, Left and Right Maxillary, Left and Right Total Ethmoidectomies and Septoplasty Surgeon Dr. Melvi Rodriguez Accounting Teacher Surgeon(s) None Estimated Blood Loss 30ml Findings Consistent with Post-Op Diagnosis Specimens None per surgeon Drains None Anesthesia Type General Complication(s) none Disposition Accompanied Pt To Recover: yes Disposition: Recovery Room / PACU Overlapping Procedure I was present for: the critical portions of procedure. I was immediately available: during the entire case
[2018-05-07 11:25] VITALS: TEMP 36
--- NOTE | 2018-05-07 11:27 | Anesthesia Progress Nt - [facility] ---
Anesthesia Post Op Note Date & Time May 07, 2018 at 11:27 Vital Signs Pain Intensity: 2 Vital Signs Past 12 Hours Date Time Temp Pulse Resp B/P (MAP) Pulse Ox O2 Delivery O2 Flow Rate FiO2 05/07/18 11:15 36.3 125/88 (99) 05/07/18 11:14 71 0 97 05/07/18 11:14 72 0 05/07/18 11:10 127/102 (111) 05/07/18 11:09 78 9 05/07/18 11:09 77 9 99 05/07/18 11:05 119/78 (92) 05/07/18 11:04 88 17 100 05/07/18 11:04 90 17 05/07/18 11:04 Room Air 05/07/18 11:01 130/91 (101) 05/07/18 10:59 71 9 05/07/18 10:59 71 9 100 05/07/18 10:56 130/95 (103) 05/07/18 10:54 78 3 05/07/18 10:54 82 3 100 05/07/18 10:50 143/91 (106) 05/07/18 10:49 77 4 05/07/18 10:49 77 4 100 05/07/18 10:46 123/90 (102) 05/07/18 10:44 71 7 100 05/07/18 10:44 71 7 05/07/18 10:40 130/88 (95) 05/07/18 10:39 78 9 100 05/07/18 10:39 78 9 05/07/18 10:36 123/79 (93) 05/07/18 10:34 84 10 05/07/18 10:34 85 10 100 05/07/18 10:30 141/84 (100) 05/07/18 10:29 71 16 99 05/07/18 10:29 71 16 05/07/18 10:27 130/82 (90) 05/07/18 10:24 36.2 81 12 140/103 95 Humidified Oxygen 5 05/07/18 07:57 36.8 83 16 105/73 (84) 96 Room Air Notes Mental Status: alert / awake / arousable, participated in evaluation Pt Amnestic to Procedure: Yes Nausea / Vomiting: adequately controlled Pain: adequately controlled Airway Patency, RR, SpO2: stable & adequate BP & HR: stable & adequate Hydration State: stable & adequate Anesthetic Complications: no major complications apparent
--- NOTE | 2018-05-07 12:09 | OPERATIVE REPORT ---
DATE OF OPERATION: 05/07/2018 PREOPERATIVE DIAGNOSES: Chronic sinusitis and septal deviation. POSTOPERATIVE DIAGNOSES: Chronic sinusitis and septal deviation. PROCEDURE: Right and left frontal, right and left total ethmoid and right and left maxillary sinusotomies with endoscopic septoplasty. SURGEON: Dr. Rodriguez. ANESTHESIA: General LMA. COMPLICATIONS: None. BLOOD LOSS: 30 mL. 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 DESCRIPTION OF PROCEDURE: The patient was brought to the operating room and placed in supine position. General anesthesia was induced using LMA, prepped, draped in usual sterile manner. BrainLAB device calibrated and used for the entire procedure. The right maxillary sinus was cannulated with guidewire and dilated using 6 mm balloon. Then, the left maxillary sinus was cannulated with guidewire and dilated using 6 mm balloon. The left maxillary sinus was irrigated clean of much thick mucin. The right nasofrontal duct was cannulated with the guidewire with BrainLAB computer guidance and dilated using the 6 mm balloon. The guidewire was left in place as a marker for the frontal sinusotomy. The right frontal sinus was dominant and crosses over to the left side. The frontal sinusotomy was performed using the shaver, coupled with the BrainLAB device, removing the anterior wall, then the posterior wall of the agger nasi cell, opening up the nasofrontal duct, leaving the mucosa there intact. At this point, total ethmoidectomy was performed opening up the bullae ethmoidalis going through the ground lamella into the posterior ethmoid air cells, delineating the posterior most ethmoid air cell with the BrainLAB device and also identifying the skull base and lamina papyracea and following these structures anteriorly exonerating all the posterior and all the anterior ethmoid air cells up to the previously dilated nasofrontal duct. Maxillary sinus was opened by removing the polypoid mucosa at the posterior border at the anterior wall of the bullae ethmoidalis. The left frontal sinusotomy, total ethmoidectomy, and maxillary sinus antrostomy was performed in a similar manner. The left frontal sinus was hypoplastic and smaller. The left maxillary sinus was opened by connecting the primary ostia to an accessory ostia at the posterior fontanelle connecting these 2 openings using the seeker and then the shaver. The left maxillary sinus was again noted to be hypoplastic and was suctioned clean. At this point, endoscopic septoplasty was performed. The left Javid incision was made using the 15 blade. Mucoperichondrium was elevated off the left side of septum. Cartilage was inferiorly from the vomer maxillary crest and posteriorly from the perpendicular plate of the ethmoid. Bilateral posterior tunnels were elevated and the left superior inferior tunnels were elevated and the deviated portion of the septum along with a large bony spur projecting to the left inferiorly along with the cartilaginous spur projecting to the left inferiorly were removed using the Radha rongeurs, the caudal dissector and the Deedee forceps. A single contour stent was placed in the right nasofrontal duct and regular Propel stents were placed in each middle meatus, one on each side. The left side of the nose was packed with a single piece of Gelfoam. The patient tolerated the procedure well and was taken to the recovery area in satisfactory condition. I attest to the content of the Intraoperative Record and any orders documented therein. Any exception s are noted below.
[2018-05-07 12:11] VITALS: BP 110/73; PULSE 84; O2SAT 100
== END | disposition home or self-care (01) ==
LOC: X.SURG 07:36
PROVIDERS: ATTEND Otolaryngology
DX: J32.9 Chronic sinusitis, unspecified (principal); J34.2 Deviated nasal septum; F32.9 Major depressive disorder, single episode, unspecified; Z88.1 Allergy status to other antibiotic agents